=== PATIENT | female | born 1950 | race Native Hawaiian/Other Pacific Islander ===

== ENCOUNTER 2016-10-12 13:26 | Outpatient (CLI) | payer OTHER ==
[~2016-10-12 13:26] MED LIST: ADIPEX PO; ADIPEX-P37.5 M1 OR; ALPR0.5T24 PO; CALCIUM OR; DULO60CA2 OR; HYDR25TA60 PO; LOMOTIL2.5 MG OR; MULTIVITAMI1 OR; SIMV20TA2 PO; VICTOZA18 MG/3 ML SC; XYZAL5 MG OR; ZIAC PO
[2016-10-12 14:25] LABS: PLATELET COUNT 333 K/uL (152-353)
[2016-10-12 15:06] LABS: SODIUM 133 mmol/L (136-145)
== END 2016-10-12 19:10 | disposition home or self-care (01) ==
LOC: LABW 13:26
PROVIDERS: Nurse Practitioner Family
DX: R10.84 Generalized abdominal pain (principal); R53.83 Other fatigue; R11.0 Nausea; R39.15 Urgency of urination
CPT/HCPCS: 36415; 80053; 81000; 82150; 83690; 84439; 84443; 85027

== ENCOUNTER 2016-10-19 13:30 | Outpatient (CLI) | payer OTHER | END 2016-10-19 14:30 | disposition home or self-care (01) | LOC: RAD 13:30 | DX: M79.601 Pain in right arm (principal); M79.89 Other specified soft tissue disorders ==

== ENCOUNTER 2017-01-26 13:49 | Outpatient (CLI) | payer OTHER ==
[2017-01-26 14:42] LABS: POTASSIUM 4.2 mmol/L (3.6-5.2); SODIUM 130 mmol/L (136-145)
== END 2017-01-26 19:50 | disposition home or self-care (01) ==
LOC: LAB 13:49
PROVIDERS: Internal Medicine
DX: C85.90 Non-Hodgkin lymphoma, unspecified, unspecified site (principal)
CPT/HCPCS: 80053

== ENCOUNTER 2017-01-27 13:50 | Outpatient (CLI) | payer OTHER | END 2017-01-27 19:05 | disposition home or self-care (01) | LOC: LAB 13:50 | DX: C85.90 Non-Hodgkin lymphoma, unspecified, unspecified site (principal) ==

== ENCOUNTER 2017-01-27 22:37 | Outpatient (CLI) | payer OTHER | END 2017-01-27 23:10 | disposition short-term general hospital (02) | LOC: AMB 22:37 | DX: R53.83 Other fatigue (principal); R53.1 Weakness | CPT/HCPCS: A0425; A0427 ==